=== PATIENT | female | born 1960 | race Caucasian/White ===

== ENCOUNTER 2021-03-25 19:07 | Emergency (ER) | payer OTHER, SELFPAY ==
--- NOTE | 2021-03-25 19:14 | ED.URI ---
HPI - URI/Sore Throat General Chief Complaint: Upper Respiratory Infection Stated Complaint: sinus drainage Time Seen by Provider: 03/25/21 19:28 Source: patient and RN notes reviewed Mode of arrival: ambulatory Limitations: no limitations History of Present Illness HPI Narrative: 61-year-old female presents with concern for cough and sinus drainage that started yesterday. Reports she had exposure to 2 people with COVID recently. She denies shortness of breath, bodies, chills, fever, sweats. She is not vaccinated for COVID. She reports she took cold medicine last night. She reports she had COVID in November 2020. MD elicited complaint: cough and nasal congestion Related Data Allergies Allergy/AdvReac Type Severity Reaction Status Date / Time phenytoin Allergy Unknown Unknown Verified 03/25/21 19:35 PHENYTOIN SODIUM Allergy Severe RASH Uncoded 06/30/20 13:36 PHENYTOIN SODIUM EXTENDED Allergy Severe RASH Uncoded 06/30/20 13:36 Review of Systems Review of Systems: CONSTITUTIONAL: Denies malaise, chills, sweats, or fever. EYES: Denies visual changes, redness, or discharge. ENT: Reports rhinorrhea, congestion. Denies sinus pain, otalgia and sore throat. CARDIOVASCULAR: Denies chest pain, palpitations, or edema. RESPIRATORY: Reports cough. Denies dyspnea. GASTROINTESTINAL: Denies abdominal pain, nausea, vomiting, diarrhea SKIN: Denies rash or itching. MUSCULOSKELETAL: Denies myalgia. NEUROLOGIC: Denies headache. All systems reviewed & are unremarkable except as noted in HPI and below PMFSH Past Medical History Medical History Hypertension Normal colonoscopy (~2019) Family History Family History Mother Family history of glaucoma Hypertension Grandparent Family history of cardiovascular disease Cerebrovascular accident Sibling Family history of multiple sclerosis Social History Social History Smoking status: Never smoker Second hand tobacco smoke exposure: No Alcohol intake: never Comments At time of signature, agree with nursing past medical, surgical, social and family history. There is no relevant family history pertinent to the presenting complaint Exam Narrative: GENERAL: Well-appearing, well-nourished, and in no acute distress. HEAD: Normocephalic EYES: PERRLA, conjunctivae clear ENT: Nares clear, clear discharge. Mucous membranes moist. TM pearly hadley with dull light reflex bilaterally; no tragal tenderness. Oropharynx not erythematous without lesions. Tonsils not enlarged and without exudate, no drooling, no hoarseness, no trismus, uvula midline. NECK: Supple. No lymphadenopathy CHEST: Clear to auscultation, breath sounds equal. No wheezing, rhonchi, rales, or stridor. No respiratory distress, speaks in full sentences. HEART: Regular rate and rhythm. No murmur heard. SKIN: Warm, dry, no rash. NEURO: Alert and oriented x3. PSYCH: Normal mood and affect Course Course Emergency Course: Patient is aware of diagnosis, understands and agrees to treatment plan. Anticipatory guidance given. Patient agrees to follow-up as directed and is aware of reasons to seek care at the emergency department. Portions of this record may have been created with voice recognition software Level of Care: Express Care Visit Vital Signs Vital signs: Reviewed. Patient has history of hypertension MDM - URI/Sore Throat MDM Narrative Medical decision making narrative: Differential diagnosis considered: Vasquez virus, strep pharyngitis, allergic rhinitis, upper respiratory tract infection, sinusitis, rhinosinusitis, nasopharyngitis. viral pharyngitis, otitis media, otitis externa, pneumonia, bronchitis, viral cough syndrome, viral syndrome, and influenza. Exam findings show no acute concerns or changes; patient is non-toxic appearing and is in no distress. Agnes
[2021-03-25 19:25] VITALS: BP 143/79; PULSE 105; RESP 18; TEMP 36.9; O2SAT 98
[2021-03-28 18:18] LABS: SARS-CoV-2 RNA PCR Positive
== END 2021-03-25 19:44 | disposition home or self-care (01) ==
PROVIDERS: Emergency Provider Nurse Practitioner; PCP Family Medicine
DX: U07.1 COVID-19 (principal); I10 Essential (primary) hypertension
CPT/HCPCS: 99213; C9803; G0463; U0003; U0005

== ENCOUNTER 2023-11-24 06:48 | Emergency (ER) | payer OTHER, SELFPAY ==
[2023-11-24 06:58] VITALS: RESP 18; TEMP 36.7
[2023-11-24 07:02] VITALS: BP 189/93; PULSE 98; RESP 18; O2SAT 96
[2023-11-24 08:39] LABS: Basophils Percent Auto 0.1 % (0.2-1.2); Eosinophils Absolute Auto 0.3 K/mm3 (0-0.3); Eosinophils Percent Auto 2.7 % (0-4.4); Hematocrit 43.8 % (37.0-47.0); Hemoglobin 14.6 g/dL (12.0-15.0); Immature Granulocyte Absolute 0.03 K/mm3 (0.00-0.031); Immature Granulocyte Percent A 0.3 % (0-0.5); Lymphocytes Percent Auto 14.3 % (18.3-44.2); Mean Corpuscular HGB Conc 33.3 g/dl (32-36); Mean Corpuscular Hemoglobin 27.5 pg (26-34); Mean Corpuscular Volume 82.6 fl (80-100); Mean Platelet Volume 9.6 fl (7.4-10.4); Monocytes Absolute Auto 0.4 K/mm3 (0.1-0.6); Monocytes Percent Auto 4.8 % (2.6-8.5); Neutrophils Absolute Auto 7.1 K/mm3 (1.3-6.7); Neutrophils Percent Auto 77.8 % (45.5-73.1); Platelet Count Result 206 k/mm3 (150-375); Red Cell Distribution Width 14.6 % (11.5-14.5); White Blood Count 9.1 K/mm3 (4.5-10.0)
[2023-11-24 08:49] LABS: Alanine Aminotransferase 18 U/L (6-35); Albumin Level 4.2 g/dL (3.5-5.1); Alkaline Phosphatase 116 U/L (38-126); Anion Gap 10 mmol/L (4-12); Aspartate Amino Transferase 25 U/L (14-36); Bilirubin,Total 0.7 mg/dL (0.2-1.3); Blood Urea Nitrogen 13 mg/dL (7-17); Calcium 9.1 mg/dL (8.4-10.2); Carbon Dioxide 25 mmol/L (22-30); Chloride 101 mmol/L (98-107); Estimated CRCL calculation 72 ml/min; Estimated Glomerular Filt Rate > 60; Glucose 126 mg/dL (65-110); Potassium 3.6 mmol/L (3.4-5.0); Sodium 136 mmol/L (137-145)
--- NOTE | 2023-11-24 09:22 | ED.EXTPRO ---
HPI - Extremity Problem General Chief complaint: Extremity Problem,Nontraumatic Stated complaint: insect bite Time Seen by Provider: 11/24/23 07:06 History of Present Illness HPI Narrative: Patient is a 63-year-old female who presents ER with left arm swelling. She was stung by a wasp 2 days ago. Initially had swelling around the elbow. Yesterday went down to the mid forearm. Today it is down to her wrist and up to the mid humerus. There are blisters around the site of the sting. No fevers or chills or sweats. She can still flex and extend without pain at the elbow. Related Data Allergies Allergy/AdvReac Type Severity Reaction Status Date / Time phenytoin Allergy Unknown Unknown Verified 11/24/23 07:27 PHENYTOIN SODIUM Allergy Severe RASH Uncoded 11/24/23 07:27 PHENYTOIN SODIUM EXTENDED Allergy Severe RASH Uncoded 11/24/23 07:27 Review of Systems Review of Systems: All systems reviewed & are unremarkable except as noted in HPI and below Constitutional: Constitutional: Reports no additional constitutional complaints ENT: Reports system reviewed and no additional complaints, except as documented Cardiovascular: Cardiovascular: Reports no additional cardiovascular complaints Respiratory: Respiratory: Reports no additional respiratory complaints Gastrointestinal: Gastrointestinal: Reports no additional gastrointestinal complaints Integumentary/Breasts: Skin/Breast: Reports pruritus and Reports erythema Comments: Blisters PMFSH Past Medical History Medical History Hypertension Normal colonoscopy (~2019) Family History Family History Mother Family history of glaucoma Hypertension Grandparent Family history of cardiovascular disease Cerebrovascular accident Sibling Family history of multiple sclerosis Social History Social History Smoking status: Never smoker Second hand tobacco smoke exposure: No Alcohol intake: never Exam Narrative: GENERAL: Well-appearing, well-nourished, and in no acute distress. HEAD: Normocephalic, atraumatic. ENT: Mucous membranes moist. CHEST: Clear to auscultation. No respiratory distress. HEART: Regular rate and rhythm. Normal peripheral pulses. ABDOMEN: Soft, nontender, nondistended. EXTREMITIES: Normal range of motion. Swelling and induration of the left upper extremity from the mid humerus down to the wrist/hand. There is blistering over the proximal forearm at the site of inoculation. Slight warmth. SKIN: Warm, dry, no rash. See above NEURO: Alert and oriented x3. PSYCH: Normal mood and affect. Course Course Emergency Course: CBC and CMP unremarkable. It is likely that this is allergic localized reaction however we will start the patient on doxycycline in case there is secondary infection. Additionally patient be started on steroids, as needed Benadryl, and recommend daily Zyrtec and famotidine. Vital Signs Vital signs: Vital Signs Temperature 98.1 F 11/24/23 06:58 Respiratory Rate 18 11/24/23 06:58 Temperature 98.1 F 11/24/23 06:58 Pulse Rate 98 11/24/23 07:02 Respiratory Rate 18 11/24/23 07:02 Blood Pressure 189/93 H 11/24/23 07:02 Pulse Oximetry 96 11/24/23 07:02 MDM - Extremity (Nontraumatic) Lab Data 11/24/23 08:32 11/24/23 08:32 Labs: Lab Results 11/24/23 Range/Units 08:32 WBC 9.1 (4.5-10.0) K/mm3 RBC 5.30 (4.2-5.4) M/mm3 Hgb 14.6 (12.0-15.0) g/dL Hct 43.8 (37.0-47.0) % MCV 82.6 (80-100) fl MCH 27.5 (26-34) pg MCHC 33.3 (32-36) g/dl RDW 14.6 H (11.5-14.5) % Plt Count 206 (150-375) k/mm3 MPV 9.6 (7.4-10.4) fl Immature Gran % (Auto) 0.3 (0-0.5) % Neut % (Auto) 77.8 H (45.5-73.1) % Lymph % (Auto) 14.3 L (18.3-44.2) % [place] % (Auto) 4.8 (2.6-8.5)
== END 2023-11-24 10:08 | disposition home or self-care (01) ==
PROVIDERS: Emergency Provider Emergency Medicine; PCP Family Medicine
DX: T63.461A Toxic effect of venom of wasps, accidental (unintentional), initial encounter (principal); L03.114 Cellulitis of left upper limb; I10 Essential (primary) hypertension
CPT/HCPCS: 36415; 80053; 85025; 99283

== ENCOUNTER 2024-12-10 07:09 | Day surgery (SDC) | payer MEDICARE, SELFPAY ==
[2024-12-10 07:51] VITALS: BP 141/75; PULSE 73; RESP 16; TEMP 36.4; O2SAT 98
[2024-12-10] MEDS: LACTATED RINGERS 1,000 ML 150 ML IV CONT (08:00)
--- NOTE | 2024-12-10 08:03 | WPDANESEPPF ---
Anes - Initial Pre Proc Eval Procedure: Operation Date: 12/10/24 09:00 Proposed Procedures p Screening Colonoscopy - Joaquín Pavon DO Date/Time: 12/10/24 08:03 Surgeon: Joaquín Pavon DO Pre Op Diagnosis: Neoplasm Screening Patient Data Age: 64 Gender: F Height: 1.63 m Weight: 94.2 kg Last Vital Signs Temp 97.6 F 12/10/24 07:51 Pulse 73 12/10/24 07:51 Resp 16 12/10/24 07:51 BP 141/75 H 12/10/24 07:51 Pulse Ox 98 12/10/24 07:51 O2 Del Method Room Air 12/10/24 07:51 Allergies Allergy/AdvReac Type Severity Reaction Status Date / Time phenytoin (From Dilantin) Allergy Rash Verified 12/10/24 07:50 Home Medications ?Medication ?Instructions ?Recorded ?Confirmed ?Type hydrochlorothiazide 25 mg tablet 25 mg PO DAILY #90 tabs 05/17/24 12/10/24 Rx losartan 100 mg tablet See Rx Instructions .Route 10/11/24 12/10/24 Rx .COMPLEX #90 tabs rosuvastatin 5 mg tablet 5 mg PO DAILY #90 tabs 10/29/24 12/10/24 Rx Patient hx anesthesia problems: none Family hx anesthesia problems: none Results Review: All pre-operative results and documents have been reviewed as part of the pre-operative evaluation. [facility] Past Medical History Medical History (Updated 10/11/24 @ 11:10 by Rox Cazares PA-C) Seizure states she was hypoglycemic and had 2 seizures when she was 14 years old Normal colonoscopy (~2018) Hypertension Family History Family History Mother Family history of glaucoma Hypertension Grandparent Family history of cardiovascular disease Cerebrovascular accident Sibling Family history of multiple sclerosis Social History Social History Smoking status: Never smoker Second hand tobacco smoke exposure: No Alcohol intake: never Substance use: never Substance use type: does not use Living arrangements: with family Additional living arrangements comments: Spiritual care concerns: No Anes - Eval Final PreProcedure Day of Procedure 09/29/25 08:03 Heart: regular rate and rhythm Lungs: clear to auscultation Airway: Mallampati scale class II Neurological: alert and oriented Last oral intake: >/= 8 hours ASA classification: II Anesthetic plan: proceed Anesthesia type and monitoring: monitored anesthesia care Results Review: All pre-operative results and documents have been reviewed as part of the pre-operative evaluation. Informed Consent: The patient's anesthetic plan and its attendant risks and benefits were discussed with the patient/family/POA. Questions were solicited and answers provided to the satisfaction of the patient/family/POA.
--- NOTE | 2024-12-10 08:57 | P.HP_ITS ---
H&P: HPI History of Present Illness Date/Time: 12/10/24 08:57 Chief Complaint: screening for colorectal cancer, History of colon polyps Narrative: this is a 64-year-old woman who is for colonoscopy. Her last colonoscopy was 7-8 years ago and couple polyps were removed at that time. She denies hematochezia or melena is family history of cancer. Review of Systems Review of Systems: All systems reviewed & are unremarkable except as noted in HPI and below Constitutional: Constitutional: Denies chills, Denies fever(s), Denies headache(s) and Denies weight loss Eyes: Eyes: Denies change in vision ENT: Denies dizziness, Denies headache(s), Denies neck mass and Denies throat swelling Cardiovascular: Cardiovascular: Denies chest pain, Denies lightheadedness and Denies dyspnea Respiratory: Respiratory: Denies cough, Denies dyspnea and Denies wheezing Gastrointestinal: Gastrointestinal: Denies abdominal pain, Denies change in bowel habits, Denies nausea and Denies vomiting Genitourinary: Genitourinary: Denies hematuria and Denies dysuria Musculoskeletal: Musculoskeletal: Reports as per HPI Integumentary/Breasts: Skin/Breast: Reports as per HPI Neurologic: Denies dizziness and Denies headache(s) Allergic/Immunologic: Allergic/Immunologic: Denies throat swelling and Denies wheezing [facility] Past Medical History Medical History (Updated 12/10/24 @ 08:59 by Joaquín Pavon DO) Hx of colonic polyps Seizure states she was hypoglycemic and had 2 seizures when she was 14 years old Normal colonoscopy (~2019) Hypertension Family History Family History Mother Family history of glaucoma Hypertension Grandparent Family history of cardiovascular disease Cerebrovascular accident Sibling Family history of multiple sclerosis Social History Social History Smoking status: Never smoker Second hand tobacco smoke exposure: No Alcohol intake: never Substance use: never Substance use type: does not use Living arrangements: with family Additional living arrangements comments: Spiritual care concerns: No Meds Home Medications and Allergies Home Medications ?Medication ?Instructions ?Recorded ?Confirmed ?Type hydrochlorothiazide 25 mg tablet 25 mg PO DAILY #90 ta bs 05/17/24 12/10/24 Rx losartan 100 mg tablet See Rx Instructions .Route 0 10/11/24 12/10/24 Rx .COMPLEX #90 tabs rosuvastatin 5 mg tablet 5 mg PO DAILY #90 tabs 10/2912/10/24 Rx Allergies Allergy/AdvReac Type Severity Reaction Status Date / Time phenytoin (From Dilantin) Allergy Rash Verified 12/10/24 07:50 Vital Signs Vital Signs - 24 hr 12/10/24 07:51 Temperature 97.6 F Pulse Rate 73 Respiratory Rate 16 Blood Pressure 141/75 H Pulse Oximetry 98 Oxygen Delivery Room Air Exam Const: General: no acute distress and alert Orientation/consciousness: patient oriented x3 HENMT: Head: normocephalic and atraumatic Ears: hearing grossly normal bilaterally Face/Nose/Sinus: Normal nares present Mouth: Yes Normal oral and palatal mucosa present Eyes: Periorbital: periorbital findings normal Sclera: sclerae normal EOM: EOMs intact bilaterally Neck: Neck: normal visual inspection, no lymphadenopathy and trachea midline Chest: Chest palpation & inspection: normal inspection of the chest Resp: Effort & Inspection: normal respiratory effort Auscultation: clear to auscultation bilaterally Cardio: Jugular venous distension: no JVD Rate: regular rate Rhythm: regular rhythm Heart sounds: S1 normal heart sound present and S2 normal heart sound present Peripheral pulses: Peripheral pulses 2+ throughout GI: Inspection: normal to inspection GI Palp: Yes Soft to palpation, No Tenderness to palpation present (GI), No Guarding due to palpation present (GI) and No Rebound tenderness present Percussion: Yes normal to percussion Auscultation: normal bowel sounds : General: Yes no CVA tenderness Back/Spine/Pelvis: Back: no CVA tenderness Neuro: General: patient oriented x3, no focal motor deficits and CN's II-XI intact bilaterally Cognition (Neuro): normal cognition Speech: normal speech Motor exam (neuro): 5/5 motor strength present throughout Extrem: General: capillary refill normal and no clubbing, cyanosis or edema Assessment and Plan Assessment and plan (1) Hx of colonic polyps: Code(s): Z86.0100 - Personal history of colon polyps, unspecified Status: Acute Assessment and Plan: I have recommended colonoscopy. I have discussed the procedure, risks, benefits, and alternatives. Questions were answered. Patient is agreeable to proceed.
--- NOTE | 2024-12-10 09:06 | P.PNAN_ITS ---
Anes - Initial Pre Proc Eval Procedure: Operation Date: 12/10/24 09:00 Proposed Procedures p Screening Colonoscopy - Joaquín Pavon DO Date/Time: 12/10/24 09:06 Surgeon: Joaquín Pavon DO Pre Op Diagnosis: Neoplasm Screening Patient Data Age: 64 Gender: F Height: 1.63 m Weight: 94.2 kg Last Vital Signs Temp 97.6 F 12/10/24 07:51 Pulse 73 12/10/24 07:51 Resp 16 12/10/24 07:51 BP 141/75 H 12/10/24 07:51 Pulse Ox 98 12/10/24 07:51 O2 Del Method Room Air 12/10/24 07:51 Allergies Allergy/AdvReac Type Severity Reaction Status Date / Time phenytoin (From Dilantin) Allergy Rash Verified 12/10/24 07:50 Home Medications ?Medication ?Instructions ?Recorded ?Confirmed ?Type hydrochlorothiazide 25 mg tablet 25 mg PO DAILY #90 ta bs 05/17/24 12/10/24 Rx losartan 100 mg tablet See Rx Instructions .Route 0 10/11/24 12/10/24 Rx .COMPLEX #90 tabs rosuvastatin 5 mg tablet 5 mg PO DAILY #90 tabs 10/2912/10/24 Rx Patient hx anesthesia problems: none Family hx anesthesia problems: none Results Review: All pre-operative results and documents have been reviewed as part of the pre- operative evaluation. [facility] Past Medical History Medical History (Updated 12/10/24 @ 08:59 by Joaquín Pavon DO) Hx of colonic polyps Seizure states she was hypoglycemic and had 2 seizures when she was 14 years old Normal colonoscopy (~2018) Hypertension Family History Family History Mother Family history of glaucoma Hypertension Grandparent Family history of cardiovascular disease Cerebrovascular accident Sibling Family history of multiple sclerosis Social History Social History Smoking status: Never smoker Second hand tobacco smoke exposure: No Alcohol intake: never Substance use: never Substance use type: does not use Living arrangements: with family Additional living arrangements comments: Spiritual care concerns: No Anes - Eval Final PreProcedure Day of Procedure 12/10/24 09:06 Results Review: All pre-operative results and documents have been reviewed as part of the pre- operative evaluation. Informed Consent: The patient's anesthetic plan and its attendant risks and benefits were discussed with the patient/family/POA. Questions were solicited and answers provided to the satisfaction of the patient/family/POA.
--- NOTE | 2024-12-10 09:07 | WPDANESPN ---
Anes - Prog Note Post-Op Date/Time: 12/10/24 09:07 Vital Signs: Last Vital Signs Temp 97.6 F 12/10/24 07:51 Pulse 73 12/10/24 07:51 Resp 16 12/10/24 07:51 BP 141/75 H 12/10/24 07:51 Pulse Ox 98 12/10/24 07:51 O2 Del Method Room Air 12/10/24 07:51 Pain Score (VAS): no Patient Feedback: Patient satisfied with anesthetic care.
[2024-12-10 09:24] VITALS: BP 104/46; PULSE 62; RESP 16; O2SAT 96
[2024-12-10 09:34] VITALS: BP 110/70; PULSE 66; RESP 20; O2SAT 96
[2024-12-10 09:44] VITALS: BP 117/99; PULSE 61; RESP 20; O2SAT 97
== END 2024-12-10 09:52 | disposition home or self-care (01) ==
PROVIDERS: PCP Student in an Organized Health Care Education/Training Program; Visit Provider Surgery
PROC: 0DJD8ZZ Inspection of Lower Intestinal Tract, Via Natural or Artificial Opening Endoscopic (ICD-10-PCS; CPT 45378; principal; 2024-12-10 09:00)
DX: Z12.11 Encounter for screening for malignant neoplasm of colon (principal); D12.0 Benign neoplasm of cecum; K57.30 Diverticulosis of large intestine without perforation or abscess without bleeding
CPT/HCPCS: 45380

== ENCOUNTER 2024-12-10 07:58 | Outpatient (NON) | payer MEDICARE, SELFPAY ==
--- NOTE | 2024-12-10 | S_PTH ---
PATIENT: Aburie Watkins LOC: [facility]#:[id number] AGE/SX: 64/F ROOM: RE12/10/[address]: Joaquín Pavon DO : 1960 BED: DIS: 12/10/2024 SPEC #: [id number] RECD: 12/11/24 08:11 STATUS: GOLDIE RE #: [id number] VARGHESE: 12/10/24 00:[address]: Joaquín Pavon DEPT: [facility] Surgical RECD BY: Eric Ding ENTERED: 12/11/24 08:12 SP TYPE: Surgical OTHR DR: Rox Cazares PA-C Tissues: A - Colon Polypectomy B - Colon Polypectomy Procedures: Hematoxylin and Eosin Stain Gross and Microscopic Level 4
== END 2024-12-10 07:59 | disposition home or self-care (01) ==
PROVIDERS: PCP Student in an Organized Health Care Education/Training Program; Visit Provider Surgery
DX: Z12.11 Encounter for screening for malignant neoplasm of colon (principal); Z86.0100 Personal history of colon polyps, unspecified
CPT/HCPCS: 88305